=== PATIENT | male | born 1960 | race Caucasian/White ===

== ENCOUNTER 2017-03-21 17:19 | Emergency (ER) | payer SELFPAY ==
[~2017-03-21] VITALS: Ht 177.8 cm; Wt 81.6 kg
[2017-03-21] MEDS ORDERED: LIDOCAINE 1% HCL (LOCAL ANESTH.) INJ 20ML MDV ONE (18:59)
[2017-03-21] MEDS ORDERED: BACITRACIN TOP OINT 1 UD PKG TOP ONE (19:15)
[2017-03-21] MEDS ORDERED: LIDOCAINE 1% HCL (LOCAL ANESTH.) INJ 20ML MDV IN ONE (19:15)
[2017-03-21 20:15] VITALS: BP 134/83
[2017-03-21] MEDS ORDERED: TETANUS-DIPTH-ACEL PERTUSSIS 0.5ML SYRG IM ONE (20:15)
== END 2017-03-21 20:51 | disposition home or self-care (01) ==
LOC: ER 17:32
DX: S51.811A Laceration without foreign body of right forearm, initial encounter (principal); S51.812A Laceration without foreign body of left forearm, initial encounter; S51.832A Puncture wound without foreign body of left forearm, initial encounter; S51.831A Puncture wound without foreign body of right forearm, initial encounter; W54.0XXA Bitten by dog, initial encounter; Y93.89 Activity, other specified; Y92.89 Other specified places as the place of occurrence of the external cause; Y99.8 Other external cause status; Z23 Encounter for immunization
CPT/HCPCS: 12031; 90471; 90715; 99284; J2001; 12041

== ENCOUNTER 2020-08-26 12:44 | Emergency (ER) | payer SELFPAY ==
[~2020-08-26] VITALS: Ht 177.8 cm; Wt 79.4 kg
[2020-08-26] MEDS ORDERED: ceFAZolin 1GM/50ML 50 ML IV ONE (13:30)
[2020-08-26] MEDS ORDERED: NEOMYCIN-BACITRACIN-POLYM UNITDOSE PKG TOP OINT TOP ONE (13:30)
[2020-08-26] MEDS ORDERED: LIDOCAINE 1% (LOCAL ANESTH.) PF 5ml SDV ID ONE (13:30)
[2020-08-26] MEDS ORDERED: LIDOCAINE 1% HCL (LOCAL ANESTH.) INJ 20ML MDV ONE (13:41)
[2020-08-26 16:27] VITALS: BP 137/68
== END 2020-08-26 16:04 | disposition home or self-care (01) ==
LOC: ER 12:44
DX: S91.311A Laceration without foreign body, right foot, initial encounter (principal); X58.XXXA Exposure to other specified factors, initial encounter; Y93.89 Activity, other specified; Y92.89 Other specified places as the place of occurrence of the external cause; Y99.8 Other external cause status
CPT/HCPCS: 12035; 73630; 96365; 99284; J0690; J2001; 12005